=== PATIENT | female | born 1945 | race Caucasian/White ===

== ENCOUNTER → 2016-11-07 | Outpatient (CLI) | payer MEDICARE ==
[~2016-11-07] MED LIST: ALPR.25 PO; LEVO50TA4 PO; MELO15TA2 PO; PRAV10 PO; SOMA250T PO
--- NOTE | 2016-11-08 09:30 | RSPPFT ---
DATE OF PROCEDURE: 11/07/16 COMMENTS: Spirometry with FVC of 2.4 predicted 2.8, FEV1 of 1.9 predicted 2.0, FEV1/FVC ratio 77% predicted 70%. Lung volumes show a mild decrease in the TLC and RV. DLCO is 54% of predicted. IMPRESSION: Patient's flow volume loop is not ideal but, on the basis of the above, she likely has a mild restrictive lung defect.
== END ==
LOC: HRSP 09:19
PROVIDERS: ATTEND Internal Medicine Pulmonary Disease
DX: J47.9 Bronchiectasis, uncomplicated (principal)
CPT/HCPCS: 94060; 94620; 94726; 94729

== ENCOUNTER → 2017-09-11 | Outpatient (CLI) | payer MEDICARE | LOC: HRSP 10:00 | PROVIDERS: ATTEND Internal Medicine | DX: J84.10 Pulmonary fibrosis, unspecified (principal) | CPT/HCPCS: 94060; 94618; 94726; 94729 ==

== ENCOUNTER → 2017-10-27 | Outpatient (CLI) | payer MEDICARE ==
[~2017-10-27] MED LIST changes: +CARI350T25 PO; +CO Q60CA PO; +ECASA81 PO; +INUL2TAB2 PO; +MELA1TAB18 PO; +ONETAB22 PO; +PRAV40TA2 PO; +VITA2000 PO
[2017-10-27 10:52] LABS: AUTOMATED NEUTROPHIL # 4.9 TH/MM3 (1.8-7.7); BASOPHIL # 0.1 TH/MM3 (0-0.2); BASOPHIL % 0.6 % (0.0-2.0); EOSINOPHIL # 0.2 TH/MM3 (0-0.4); EOSINOPHIL % 1.8 % (0.0-4.0); HEMATOCRIT 38.9 % (35.0-46.0); HEMOGLOBIN 13.3 GM/DL (11.6-15.3); LYMPH % 33.3 % (9.0-44.0); MEAN CELL VOLUME 88.8 FL (80.0-100.0); MEAN CORPUSCULAR HEMOGLOBIN 30.4 PG (27.0-34.0); MEAN CORPUSCULAR HGB CONC 34.2 % (32.0-36.0); MEAN PLATELET VOLUME 6.8 FL (7.0-11.0); MONO % 10.7 % (0.0-8.0); NEUT % 53.6 % (16.0-70.0); PLATELET COUNT 290 TH/MM3 (150-450); RED BLOOD COUNT 4.38 MIL/MM3 (4.00-5.30); RED CELL DISTRIBUTION WIDTH 13.9 % (11.6-17.2); WHITE BLOOD COUNT 9.1 TH/MM3 (4.0-11.0)
[2017-10-27 10:57] LABS: PROTHROMBIN TIME - PATIENT 9.8 SEC (9.8-11.6)
[2017-10-27 11:15] LABS: BICARBONATE 28.7 MEQ/L (21.0-32.0); CALCIUM 8.5 MG/DL (8.5-10.1); CREATININE 0.74 MG/DL (0.50-1.00)
--- NOTE | 2017-10-27 12:11 | RADRPT ---
EXAM DATE/TIME: 10/27/2017 11:38 [facility] COMPARISON: No previous studies available for comparison. INDICATIONS : Evaluate for pneuminia , pneumothorax, or communicable disease. Pre-op for right lung biopsy. MEDICAL HISTORY : Pulmonary fibrosis. SURGICAL HISTORY : None. ENCOUNTER: Initial ACUITY: 1 day PAIN SCORE: 0/10 LOCATION: chest FINDINGS: PA and lateral views of the chest demonstrate diffuse interstitial prominence right greater than left . The aorta is quite tortuous. Some areas of atelectasis within the lingula.. The cardiomediastinal contours are unremarkable. Osseous structures are intact. CONCLUSION: Diffuse interstitial lung disease with some areas of consolidation probable atelectasis particularly in the lingula. Reticular Nodular infiltrate in the right upper lobe most significant area of disease . Navjot Zavaleta MD on October 27, 2017 at 12:08 Board Certified Radiologist. This report was verified electronically.
[2017-10-27 12:30] LABS: BILIRUBIN, URINE NEG (NEG); BLOOD, URINE NEG (NEG); GLUCOSE,URINE NEG (NEG); KETONE, URINE NEG (NEG); MUCUS URINE FEW /lpf (OCC); NITRITE,URINE NEG (NEG); PH, URINE 7.5 (5.0-8.5); URINE COLOR LIGHT-YELLOW (YELLW/STRAW); URINE LEUKOCYTE ESTERASE NEG (NEG)
--- NOTE | 2017-10-27 23:47 | EKG ---
Date Performed: 10/27/2017 Time Performed: 11:20:52 PTAGE: 72 years EKG: Sinus rhythm MINIMAL VOLTAGE CRITERIA FOR LVH, CONSIDER NORMAL VARIANT BORDERLINE ECG PREVIOUS TRACING : 05/20/2008 11.47 Compared to previous tracing, rate has increased with mini mal criteria for LVH DOCTOR: Luciano Swain Interpretating Date/Time 10/27/2017 23:46:15
== END ==
LOC: CPRE 10:06
PROVIDERS: ATTEND Thoracic Surgery (Cardiothoracic Vascular Surgery)
DX: Z01.812 Encounter for preprocedural laboratory examination (principal); Z01.811 Encounter for preprocedural respiratory examination; Z01.810 Encounter for preprocedural cardiovascular examination; J84.9 Interstitial pulmonary disease, unspecified; R94.31 Abnormal electrocardiogram [ECG] [EKG]
CPT/HCPCS: 36415; 71046; 80048; 81001; 85025; 85610; 85730; 93005

== ENCOUNTER 2017-11-02 07:30 | Inpatient (IN) | payer MEDICARE ==
[~2017-11-02] VITALS: Ht 160 cm; Wt 62.0 kg
[~2017-11-02 07:30] MED LIST changes: -ALPR.25 PO; -MELO15TA2 PO; -PRAV10 PO; -SOMA250T PO
[2017-11-08] VITALS (14 sets, daily range): BP systolic 121–137; BP diastolic 58–66; PULSE 68–106; RESP 18–20; TEMP 97.4–98.4; O2SAT 95–99
[2017-11-08] MEDS ORDERED: SODIUM CHLORID 0.9% 500 ML IV PRN (06:15)
[2017-11-08] MEDS ORDERED: INSULIN HUMAN REGULAR 1,000 UNITS/10 ML VIAL SQ PRN (06:15)
[2017-11-08] MEDS ORDERED: METOPROLOL TARTRATE 25 MG TAB PO PRN (06:15)
[2017-11-08] MEDS ORDERED: CHLORHEXIDINE GLUCONATE 2 % 1 PACK (2 CLOTHS) TOPICAL PRN (06:15)
[2017-11-08] MEDS ORDERED: POVIDONE IODINE 5% (ANTISEPSIS KIT) 4 APPLICATIONS EACH NARE PRN (06:15)
[2017-11-08] MEDS ORDERED: LACTATED RINGER'S 1000 ML IV PRN (06:15)
[2017-11-08] MEDS ORDERED: BUPIVACAINE LIPOSO PF 1.3% INJ 20 ML, DEXAMETHASONE INJ 4 MG, MORPHINE INJ 8 MG in SODI... IRRIGATION SCH (07:15)
[2017-11-08] MEDS ORDERED: ceFAZolin 2 GM PREMIX 50 ML ONE (07:41)
--- NOTE | 2017-11-08 08:27 | PD.CAR.PN ---
CVT Progress Note Subjective/Hospital Course: 72/ female had a workup for shortness of breath and worsening CT chest appearance. Ct chest demonstrated diffuse interstitial pattern , more prominent on the right , she is electively admitted for right VATS with lower lobe biopsy PMH: Bilateral interstitial lung disease, HLP, Hypothyroidism Objective: Vital Signs Date Time Temp Pulse Resp B/P (MAP) Pulse Ox O2 Delivery O2 Flow Rate FiO2 11/08/17 06:39 98.1 76 16 128/76 (93) 99 Lizzy Mccloud November 08, 2017 08:27
[2017-11-08] MEDS ORDERED: MAGNESIUM HYDROXIDE SUSP 30 ML CUP PO PRN (08:45)
[2017-11-08] MEDS ORDERED: ONDANSETRON HCL 4 MG/2 ML VIAL IV PUSH PRN (08:45)
[2017-11-08] MEDS ORDERED: SODIUM CHLORIDE 0.9% FLUSH 10 ML FLUSH IV FLUSH PRN (08:45)
[2017-11-08] MEDS ORDERED: RESP: ALBUTEROL 2.5 MG/3 ML NEB (PRN) NEB (08:45)
[2017-11-08] MEDS ORDERED: ACETAMINOPHEN/HYDROcodone 325 MG/5 MG TAB PO PRN (08:45)
--- NOTE | 2017-11-08 08:49 | PD.OP ---
cc: Christiano Goodwin MD; Vanessa Joya MD; Phoenix Muñoz MD Operative Report Date of Surgery: November 08, 2017 Preoperative Diagnosis: Postoperative Diagnosis: Procedure: SURGICAL PROCEDURE 1. Right Video-Assisted Thoracoscopic Surgery (VATS). 2. Biopsy Right Lower Lobe Basilar Segment 3. Intercostal Nerve Block Surgeon: Vanessa Joya Branch Associate Teller(s): Amber Gonzalez Operation and Findings: PREOPERATIVE DIAGNOSES 1. Idiopathic Interstitial Disease 2. Pulmonary Fibrosis POSTOPERATIVE DIAGNOSES Same SURGICAL PROCEDURE 1. Right Video-Assisted Thoracoscopic Surgery (VATS). 2. Biopsy Right Lower Lobe Basilar Segment 3. Intercostal Nerve Block SURGEON Vanessa Joya MD BENCH INSPECTOR MITUL Mejia ANESTHESIA General double lumen endotracheal. POSTAL SUPERINTENDENT Hesham Dsouza, WELL LOGGING CAPTAIN MUD ANALYSIS Hesham Walton MD PREPARATION ChloraPrep. COUNTS Needle, sponge, and instrument counts are correct. DRAINS One 24 Fr Joseluis drain. COMPLICATIONS None. INDICATIONS The patient is a 72 yo lady with bilateral pulmonary interstitial disease of unknown etiology presenting for lung biopsy. DESCRIPTION OF PROCEDURE The patient was brought to the operating room and placed supine on the OR table. Following the induction of adequate general double lumen endotracheal anesthesia and placement of appropriate monitoring devices, the patient was placed in the left lateral decubitus position. The right chest and surrounding areas were then prepped and draped in a standard sterile fashion. A 5 mm camera port was introduced into the 8th intercostal space in mid axillary line, and the camera introduced. A second 5 mm port was then placed anteriorly under direct visual guidance. The entire lung appeared fibrotic. The basilar segment of the lower lobe was grasped and wedged using a surgical stapler through the anterior port. The specimen was removed and sent for histological and microbiological analysis. The anterior port was removed and a 24 Fr Joseluis drain was placed in the pleural space. This was maintained in place with a nonabsorbable suture. All of the entry sites were injected with Exparel. Following confirmation of the drain in the proper place, the incisions were closed with 2 layers. The chest drain was attached to a suction device, and sterile dressing applied. Intercostal nerve block was performed using Ropivacaine/Morphine solution. The patient tolerated the procedure well and was extubated and transferred to the recovery room in stable condition. Vanessa Joya MD November 08, 2017 08:49
[2017-11-08] MEDS ORDERED: DO NOT ADM ANY ANTICOAGULANT DRUGS PRN (08:52)
[2017-11-08] MEDS ORDERED: NON-FORMULARY DRUG (Coenzyme Q10 (Ubidecarenone) (Co Q 10) 1 CAP) PO SCH (09:00)
[2017-11-08] MEDS ORDERED: MIDAZOLAM HCL 2 MG/2 ML VIAL ONE (09:04)
[2017-11-08] MEDS ORDERED: ACETAMINOPHEN 1000 MG/100 ML 100 ML IV ONE ×2 (09:14→09:45)
[2017-11-08] MEDS: KETOROLAC TROMETHAMINE 30 MG/ML (IVP) VIAL IV PUSH SCH ×3 (09:18→23:00)
[2017-11-08] MEDS ORDERED: DIMETHICONE/OXYBENZONE/PADMIATE LIP BALM 4.25 GM TOPICAL ONE (09:22)
--- NOTE | 2017-11-08 10:10 | RADRPT ---
EXAM DATE/TIME: 11/08/2017 09:14 [facility] COMPARISON: No previous studies available for comparison. INDICATIONS : Post thoracotomy. MEDICAL HISTORY : Pulmonary fibrosis. SURGICAL HISTORY : None. ENCOUNTER: Initial ACUITY: 1 day PAIN SCORE: 0/10 LOCATION: Bilateral chest FINDINGS: Status post right thoracotomy the chest tube in good position. Numerous diseases in the right lung. Minimal probable changes left lung. Heart is minimally enlarged. CONCLUSION: Right chest tube in good position without pneumothorax. Tc Sykes MD FACR on November 08, 2017 at 10:07 Board Certified Radiologist. This report was verified electronically.
[2017-11-08] MEDS ORDERED: Post-op Orders (for Pharmacy) OTHER ONE (10:20)
[2017-11-08] MEDS ORDERED: MELATONIN 5 MG TAB PO PRN (10:30)
[2017-11-08] MEDS ORDERED: PILL SPLITTER OTHER PRN (10:30)
[2017-11-08] MEDS: RESP: ALBUTEROL 2.5 MG/3 ML NEB (SCH) NEB ×3 (10:30→20:42)
[2017-11-08] MEDS: CARISOPRODOL 350 MG TAB PO SCH (11:00)
[2017-11-08] MEDS: PRAVASTATIN SOD 40 MG TAB PO SCH (13:23)
[2017-11-08] MEDS: ACETAMINOPHEN 325 MG TAB PO PRN ×2 (13:23→20:24)
[2017-11-08] MEDS: ASPIRIN EC 81 MG TABEC PO SCH (13:23)
[2017-11-08] MEDS: LEVOTHYROXINE SODIUM 50 MCG TAB PO SCH (13:24)
[2017-11-08] MEDS ORDERED: ROCURONIUM INJ 50 MG/5 ML SYRINGE IV PUSH ONE (14:19)
[2017-11-08] MEDS ORDERED: DEXAMETHASONE SOD PHOS 4 MG/ML VIAL IV ONE (14:19)
[2017-11-08] MEDS ORDERED: NEOSTIGMINE 5 MG/5 ML SYRINGE IV PUSH ONE (14:19)
[2017-11-08] MEDS ORDERED: LIDOCAINE HCL 1% PF 5 ML SYRINGE OTHER ONE (14:19)
[2017-11-08] MEDS ORDERED: PROPOFOL 200 MG/20 ML AMP IV ONE (14:19)
[2017-11-08] MEDS ORDERED: ONDANSETRON HCL 4 MG/2 ML VIAL IV PUSH ONE (14:19)
[2017-11-08] MEDS ORDERED: PHENYLEPH/NS 1000 MCG/10 ML SYR IV ONE (14:19)
[2017-11-08] MEDS ORDERED: GLYCOPYRROLATE 1 MG/5 ML SYRINGE IV PUSH ONE (14:19)
[2017-11-08] MEDS ORDERED: DOCUSATE CALCIUM 240 MG CAP PO SCH (21:00)
[2017-11-08] MEDS ORDERED: PANTOPRAZOLE SOD 40 MG DELAYED RELEASE TAB PO SCH (21:00)
[2017-11-08] MEDS: SODIUM CHLORIDE 0.9% FLUSH 10 ML FLUSH IV FLUSH SCH (21:00)
[2017-11-09] VITALS (15 sets, daily range): BP systolic 113–134; BP diastolic 60–75; PULSE 74–98; RESP 16–19; TEMP 97.6–97.9; O2SAT 97–99
--- NOTE | 2017-11-09 04:45 | RADRPT ---
EXAM DATE/TIME: 11/09/2017 04:00 [facility] COMPARISON: CHEST SINGLE AP, November 08, 2017, 9:14. INDICATIONS : Shortness of breath, possible pulmonary disease. MEDICAL HISTORY : Pulmonary fibrosis SURGICAL HISTORY : Thoracotomy ENCOUNTER: Subsequent ACUITY: 2 days PAIN SCORE: 0/10 LOCATION: Right chest FINDINGS: A single AP semierect view of the chest was obtained. The right-sided chest tube remains in place wit h the tip at the lung apex. There is no pneumothorax. Mild interstitial opacities remain in both lung s. The study is Midinspiratory. The heart size is at the upper limits of normal with no perihilar alex ma. There is no effusion. Multiple overlying electrocardiogram leads are present. There are atheroscl erotic changes in the aorta. CONCLUSION: Stable appearance of right-sided chest tube in place and no pneumothorax. Marco Heredia MD on November 09, 2017 at 4:42 Board Certified Radiologist. This report was verified electronically.
[2017-11-09] MEDS: LEVOTHYROXINE SODIUM 50 MCG TAB PO SCH (05:54)
[2017-11-09] MEDS: KETOROLAC TROMETHAMINE 30 MG/ML (IVP) VIAL IV PUSH SCH (05:54)
[2017-11-09] MEDS: CARISOPRODOL 350 MG TAB PO SCH (09:00)
[2017-11-09] MEDS: ACETAMINOPHEN 325 MG TAB PO PRN (09:22)
[2017-11-09] MEDS: PRAVASTATIN SOD 40 MG TAB PO SCH (09:22)
[2017-11-09] MEDS: ASPIRIN EC 81 MG TABEC PO SCH (09:22)
[2017-11-09] MEDS: SODIUM CHLORIDE 0.9% FLUSH 10 ML FLUSH IV FLUSH SCH (09:23)
[2017-11-09] MEDS: RESP: ALBUTEROL 2.5 MG/3 ML NEB (SCH) NEB (10:00)
[2017-11-09] MEDS ORDERED: HYDR-3516 PO (10:25)
--- NOTE | 2017-11-09 10:30 | HHI.DS ---
Discharge Summary Admission Date November 08, 2017 at 05:37 Discharge Date: November 09, 2017 Admitting Diagnosis 1. Idiopathic Interstitial Disease 2. Pulmonary Fibrosis (1) Pulmonary fibrosis Diagnosis: Principal ICD Codes: J84.10 - Pulmonary fibrosis, unspecified (2) S/P thoracotomy Diagnosis: Secondary ICD Codes: Z98.890 - Other specified postprocedural states Procedures 1. Right Video-Assisted Thoracoscopic Surgery (VATS). 11/08 2. Biopsy Right Lower Lobe Basilar Segment 3. Intercostal Nerve Block Brief History 72/ female had a workup for shortness of breath and worsening CT chest appearance. Ct chest demonstrated diffuse interstitial pattern , more prominent on the right , she is electively admitted for right VATS with lower lobe biopsy PMH: Bilateral interstitial lung disease, HLP, Hypothyroidism Imaging Last Impressions Chest X-Ray 11/09/17 0500 Signed Impressions: Service Date/Time: , November 09, 2017 04:00 - CONCLUSION: Stable appearance of right-sided chest tube in place and no pneumothorax. Marco Heredia MD Hospital Course 72/ female had a workup for shortness of breath and worsening CT chest appearance. Ct chest demonstrated diffuse interstitial pattern , more prominent on the right , she is electively admitted for right VATS with lower lobe biopsy PMH: Bilateral interstitial lung disease, HLP, Hypothyroidism 11/08 1. Right Video-Assisted Thoracoscopic Surgery (VATS). 2. Biopsy Right Lower Lobe Basilar Segment 3. Intercostal Nerve Block 10 chest tube dc if post CXR stable then dc home today , await path Pt Condition on Discharge: Good Discharge Disposition: Disch w/ Home Health Serv Discharge Instructions DIET: Follow Instructions for: As Tolerated, No Restrictions Activities you can perform: Full Weight Bearing, Shower Only-No Bath Activities to avoid: Strenuous Activity, Driving Additional Activity Instructio: no lifting > 8 lbs New Medications: Hydrocodone/Acetaminophen (Hydrocodone-Acetamin 5-325 mg) 5 Mg-325 Mg Tablet 1 TAB PO Q4H PRN for PAIN SCALE 3 TO 5, #30 TAB 0 Refills Continued Medications: Aspirin DR (Aspirin DR) 81 Mg Tabdr 81 MG PO DAILY, TAB 0 Refills Carisoprodol (Carisoprodol) 350 Mg Tablet 1 TAB PO HS for Pain Management Cholecalciferol (Vitamin D3) 2,000 Unit Cap 2000 UNITS PO BID for Nutritional Supplement, #1 BOTTLE 0 Refills Coenzyme Q10 (Ubidecarenone) (Co Q 10) 60 Mg Cap 1 CAP PO DAILY Inulin (Fiber Gummies) 2 Gram Tab.chew 2-3 CHEW PO DAILY Levothyroxine (Levothyroxine) 50 Mcg Tab 50 MCG PO DAILY for Thyroid, #30 TAB 0 Refills Melatonin (Melatonin) 10 Mg-1 Mg Tab 10 MG PO HS PRN for SLEEP, TAB 0 Refills Multiple Vitamins W/ Minerals (One Daily-Minerals) 1 Tab 1 TAB PO DAILY for Nutritional Supplement, #100 TAB 0 Refills Pravastatin (Pravastatin) 40 Mg Tab 40 MG PO DAILY for Cholesterol Management, #30 TAB 0 Refills Discontinued Medications: Carisoprodol (Carisoprodol) 350 Mg Tablet 0.5 TAB PO DAILY for Pain Management Lizzy Mccloud November 09, 2017 10:30
--- NOTE | 2017-11-09 12:57 | RADRPT ---
EXAM DATE/TIME: 11/09/2017 13:15 [facility] COMPARISON: CHEST SINGLE AP, November 09, 2017, 4:00. INDICATIONS : Right chest tube removal. Evaluate for pneumothorax. MEDICAL HISTORY : Hypercholesterolemia. Hypothyroidism. Pulmonary fibrosis. SURGICAL HISTORY : Appendectomy. ENCOUNTER: Subsequent ACUITY: 2 days PAIN SCORE: 0/10 LOCATION: chest FINDINGS: The heart size is normal. There is linear density seen at the lateral mid left lung. This also some m ild increased density seen at the periphery the right lung likely related interstitial disease. There is a 1.1 cm small pneumothorax seen over the right apex. CONCLUSION: Mild right pneumothorax following removal of a right chest tube. Jt Gomez MD on November 09, 2017 at 12:47 Board Certified Radiologist. This report was verified electronically.
--- NOTE | 2017-11-10 10:44 | HHI.FF ---
Face to Face Verification Diagnosis: (1) Pulmonary fibrosis (2) S/P thoracotomy Home Health Nursing Order: Medication education-adverse effect Wound care and dressing changes Nursing assessment with vital signs Instructions: Thoracic Surgery patients Mandatory frequency Assess and evaluation, 2-3 x a week for one week Initial visit 1. Review post chest surgery instructions chest precautions, Activity, Elastic hose, Incision care, Driving, Incentive spirometry, Smoking, [place] , Work and other) 2. Need Betadine to paint incision 3. Medication reconciliation 4. Importance of follow up care/ check on appointments 5. Make calendar record temperature daily 6. When to call Home nurse, review instructions, phone list 7. Incentive Spirometry, demonstration Visit 1- Begin discharge instruction for patient family and/ or caregiver using teach back method- 1. Signs and symptoms of infection 2. Disease characteristics 3. Medicines and side effects 4. Foods and nutrition/ appetite 5. Infection control/ hand washing/ hygiene Visit 2- Continue teaching 1. Discharge instructions- include additional information on smoking cessation , Visit 3- Continue teaching- 1. Cough and deep breathing, incision monitoring. For any questions please call : / [facility] Cardiothoracic Surgery Incentive spirometry Q1 hr x 10, while awake, also use acapella device hourly whole Chest wall precautions: NO pushing or pulling, ( pt must use chest pillow support chest with all activities and with coughing Daily incision care: ok to shower ( 48hrs after chest tube removed) and then daily, no tub bath. Wash all incisions with liquid dial soap, clean wash cloth to each site, rinse and pat dry. Observe for any signs of infection, such as drainage which is dark yellow, lopez, green or foul smelling. Immediately report to the surgeon any drainage from the chest incision, or legs, and for any abnormal drainage from the chest tube sites. Notify surgeon if any temp > 101.5 degrees F. When specialty dressing removed/ or if you do not have one, continue to shower daily as above, then rinse and pat incision dry and paint with betadine daily x 5 days. Allow steri strips to fall off if you have any. Avoid lotions, creams, salves, oils, etc. for the first month For Dr. Govea patients , please obtain PA & Lat CXR in 2 weeks, results to Dr. Govea ( prescription will be given) ( ) (Tele: [phone]) , F/U appointment: as per DC instructions: PCP in 2 weeks, CV surgeon 2 weeks, Independent Producer 3-4 weeks For any questions regarding incisions/ dressing / meds / post op care or above Symptoms, Monday 8am-5pm Heart & Vascular Surgery Office ( Dr. Joya & Dr. Govea), After Hours / Nights (5pm -8am) Weekends and Holidays Please call [facility] Cardiac Intermediate Care Unit (CIC) Charge Nurse I have seen patient Harriet Bajwa on 11/10/17. My clinical findings support the need for the requested home health care services because: Deconditioned w/ increased weakness I certify that my clinical findings support that this patient is homebound because: Post-op weakness Lizzy Mccloud November 10, 2017 10:44
== END 2017-11-09 14:20 | disposition home health service (06) | DRG 168 ==
LOC: HSDI 11-08 05:37 → HCPC 11-08 11:53 → UNDODISIN 11-09 13:50
PROVIDERS: ADMIT Thoracic Surgery (Cardiothoracic Vascular Surgery); ATTEND Thoracic Surgery (Cardiothoracic Vascular Surgery)
PROC: 0W9940Z Drainage of Right Pleural Cavity with Drainage Device, Percutaneous Endoscopic Approach (ICD-10-PCS; 2017-11-08)
PROC: 3E0T3BZ Introduction of Anesthetic Agent into Peripheral Nerves and Plexi, Percutaneous Approach (ICD-10-PCS; 2017-11-08)
PROC: 0BBF4ZX Excision of Right Lower Lung Lobe, Percutaneous Endoscopic Approach, Diagnostic (ICD-10-PCS; principal; 2017-11-08 07:24)
DX: J84.10 Pulmonary fibrosis, unspecified (principal); E03.9 Hypothyroidism, unspecified; J84.9 Interstitial pulmonary disease, unspecified; E78.5 Hyperlipidemia, unspecified; Z87.442 Personal history of urinary calculi
CPT/HCPCS: 71045; 86850; 86900; 86901; 87015; 87070; 87102; 87116; 87205; 87206; 88305; 88307; 94150; 94640; 94664; C9290; J0131; J0690; J1100; J1885; J2250; J2270; J2370; J2405; J2710; J3010; J7120; J7613